=== PATIENT | female | born 1990 | race American Indian/Alaskan Native ===

== ENCOUNTER 2021-09-30 12:17 | Emergency (ER) | payer OTHER ==
[2021-09-30 12:25] VITALS: BP 119/77
[2021-09-30] MEDS ORDERED: IBUPROFEN 600 MG TAB PO ONE (12:25)
--- NOTE | 2021-09-30 12:26 | Emergency Department Report ---
ED Lower Extremity HPI - General Chief Complaint: Extremity Injury, Lower Stated Complaint: RIGHT FOOT PAIN Time Seen by Provider: 09/30/21 12:22 Source: patient Mode of arrival: Wheelchair Limitations: No Limitations - History of Present Illness Initial Comments: 30-year-old female presents to the ER today with complaints of right lower extremity pain and injury. Patient states that this morning she was walking her son to the bus stop and she tripped off a curb and twisted her ankle. She states that she has been having pain to her right foot, ankle up into her right lower leg. She reports inability to bear weight due to pain and also some swelling. She states that she did not hear any pops or feel any snaps at the time of the injury. She has not taken anything for the pain. She denies any prior injury to her ankle or foot in the past. MD Complaint: leg injury, ankle injury, foot injury -: This morning - Related Data Previous Rx's Medication Instructions Recorded Last Taken Type Ibuprofen [Motrin] 600 mg PO Q8H PRN #30 tab 09/30/21 Unknown Rx Allergies Allergy/AdvReac Type Severity Reaction Status Date / Time No Known Allergies Allergy Verified 09/30/21 12:32 ED Review of Systems ROS: Stated complaint: RIGHT FOOT PAIN Other details as noted in HPI Comment: All other systems reviewed and negative Constitutional: denies: chills, fever Eyes: denies: eye pain, eye discharge, vision change ENT: denies: ear pain, throat pain, dental pain, hearing loss, epistaxis, congestion Respiratory: denies: cough, shortness of breath, wheezing Cardiovascular: denies: chest pain, palpitations, edema, syncope, paroxysmal nocturnal dyspnea Gastrointestinal: denies: abdominal pain, nausea, diarrhea, constipation, hematemesis, melena, hematochezia Genitourinary: denies: urgency, dysuria, discharge Musculoskeletal: joint swelling, arthralgia Skin: denies: rash, lesions Neurological: abnormal gait. denies: headache, weakness, numbness, paresthesias, confusion, vertigo Psychiatric: denies: anxiety, depression, auditory hallucinations, visual hallucinations, homicidal thoughts, suicidal thoughts Hematological/Lymphatic: denies: easy bleeding, easy bruising, swollen glands ED Past Medical Hx - Social History Smoking Status: Unknown if ever smoked Substance Use Type: None - Medications Home Medications: Home Medications Medication Instructions Recorded Confirmed Last Taken Type Ibuprofen [Motrin] 600 mg PO Q8H PRN #30 tab 09/30/21 Unknown Rx ED Physical Exam - General Limitations: No Limitations General appearance: alert, in no apparent distress - Head Head exam: Present: atraumatic, normocephalic, normal inspection - Neck Neck exam: Present: normal inspection, full ROM - Respiratory Respiratory exam: Present: normal lung sounds bilaterally. Absent: respiratory distress, wheezes, rales, rhonchi - Cardiovascular Cardiovascular Exam: Present: regular rate, normal rhythm, normal heart sounds - Extremities Exam Extremities exam: Present: other (Tenderness to palpation to the lateral aspect of the right ankle with tenderness to palpation to the lateral aspect of the right foot including the base of the fifth metatarsal bone. Mild swelling noted to lateral aspect of the right ankle and foot.) - Expanded Lower Extremity Exam Right Lower Leg exam: Present: normal inspection, tenderness (Mild tenderness along the lateral aspect of the right lower leg). Absent: swelling, abrasion, laceration, ecchymosis, deformity, crepidus, dislocation, erythema, palpable cord, Susana's sign Ankle exam: Present: tenderness, swelling. Absent: full ROM, abrasion, laceration, ecchymosis, deformity, crepidus, dislocation, erythema Foot/Toe exam: Present: tenderness, swelling, tenderness at base of 5th metatarsal. Absent: full ROM Neuro vascular tendon exam: Present: no vascular compromise. Absent: pulse deficit, abnormal cap refill, motor deficit, sensory deficit, tendon deficit Gait: Positive: not tested/not observed (Due to patient's discomfort and pain) - Neurological Exam Neurological exam: Present: alert, oriented X3, CN II-XII intact. Absent: motor sensory deficit - Psychiatric Psychiatric exam: Present: normal affect, normal mood - Skin Skin exam: Present: intact ED Course Vital Signs 09/30/21 12:21 Temperature 97.3 F L Pulse Rate 82 Respiratory 15 Rate Blood Pressure 119/77 O2 Sat by Pulse 100 Oximetry ED Lower Extremity MDM - Radiology Data Radiology results: report reviewed Patient: AZAR NGUYEN MR#: [id number] 0 : 1990 Acct:[id number] Age/Sex: 30 / F ADM Date: 09/30/21 Loc: ED Attending Dr: Ordering Physician: BELINDA GREENBERG Date of Service: 09/30/21 Procedure(s): XR ankle 3+V RT Accession Number(s): [id number] cc: BELINDA GREENBERG Fluoro Time In Minutes: RIGHT TIB-FIB AP AND LATERAL VIEWS RIGHT ANKLE 3 VIEWS RIGHT FOOT 3 VIEWS INDICATION: twisted ankle/pain. COMPARISON: No relevant prior imaging study available. FINDINGS: Right tib-fib: No acute fracture or dislocation. No significant soft tissue swelling. Right ankle: No fracture, dislocation, or ankle mortise widening is seen. No significant soft tissue swelling. Right foot: No fracture or dislocation. No significant soft tissue swelling. IMPRESSION: 1. No acute findings. Signer Name: Rodrigo Barahona MD Signed: 09/30/2021 1:29 PM Workstation Name: [id number] Transcribed By: CORNELIA Dictated By: Rodrigo Barahona MD Electronically Authenticated By: Rodrigo Barahona MD Signed Date/Time: 09/30/211328 DD/ 25 TD/TT: Critical care attestation.: If time is entered above; I have spent that time in minutes in the direct care of this critically ill patient, excluding procedure time. ED Disposition Clinical Impression: Ankle sprain, Foot sprain Disposition: 01 HOME / SELF CARE / HOMELESS Is pt being admited?: No Does the pt Need Aspirin: No Condition: Stable Instructions: How to Use a Stirrup Ankle Brace, [id number], Ankle Sprain, [id number], Foot Sprain, Elastic Bandage and RICE Therapy Additional Instructions: Recommend rest ice and elevating your leg as often as possible for the next 3 to 4 days. Use the Jose wrap and the ankle stirrup splint and crutches as discussed. Take the ibuprofen as prescribed for pain and you can alternate with Tylenol. If your symptoms persist for another week I recommend following up with timber management specialist listed on your discharge instructions. Return to the ER if your symptoms changes or worsens in any way. Prescriptions: Ibuprofen [Motrin] 600 mg PO Q8H PRN #30 tab PRN Reason: Pain Referrals: EMILIA LOPEZ MD [Staff Physician] - 7-10 days Forms: Work/School Release Form(ED) Time of Disposition: 13:40
--- NOTE | 2021-09-30 13:33 | XRay Report ---
RIGHT TIB-FIB AP AND LATERAL VIEWS RIGHT ANKLE 3 VIEWS RIGHT FOOT 3 VIEWS INDICATION: twisted ankle/pain. COMPARISON: No relevant prior imaging study available. FINDINGS: Right tib-fib: No acute fracture or dislocation. No significant soft tissue swelling. Right ankle: No fracture, dislocation, or ankle mortise widening is seen. No significant soft tissue swelling. Right foot: No fracture or dislocation. No significant soft tissue swelling. IMPRESSION: 1. No acute findings. Signer Name: Rodrigo Barahona MD Signed: 09/30/2021 1:29 PM Workstation Name: [id number]
== END 2021-09-30 14:36 | disposition home or self-care (01) ==
LOC: ED 12:17
DX: S93.401A Sprain of unspecified ligament of right ankle, initial encounter (principal); S93.601A Unspecified sprain of right foot, initial encounter; X58.XXXA Exposure to other specified factors, initial encounter; Y93.89 Activity, other specified; Y92.89 Other specified places as the place of occurrence of the external cause; Y99.8 Other external cause status
CPT/HCPCS: 99283